=== PATIENT | female | born 1930 | race Caucasian/White ===

== ENCOUNTER 2017-02-07 10:10 | Emergency (ER) | payer MEDICARE, OTHER ==
[~2017-02-07] VITALS: Ht 167.6 cm; Wt 54.0 kg
[2017-02-07] MEDS ORDERED: IBUP-1 PO (10:21)
[2017-02-07] MEDS ORDERED: LOSA50TA2 PO (10:21)
[2017-02-07] MEDS ORDERED: ASPI-496 PO (10:21)
[2017-02-07 11:58] VITALS: BP 140/89
== END 2017-02-07 12:00 | disposition home or self-care (01) ==
LOC: ED 11:15
DX: S60.212A Contusion of left wrist, initial encounter (principal); I10 Essential (primary) hypertension; X58.XXXA Exposure to other specified factors, initial encounter; Y93.89 Activity, other specified; Y92.009 Unspecified place in unspecified non-institutional (private) residence as the place of occurrence of the external cause; Y99.9 Unspecified external cause status
CPT/HCPCS: 99284

== ENCOUNTER 2017-09-27 21:25 | Emergency (ER) | payer MEDICARE, OTHER ==
[~2017-09-27] VITALS: Ht 167.6 cm; Wt 65.0 kg
[~2017-09-27 21:25] MED LIST: ASPI-496 PO; IBUP-11 PO; LOSA50TA2 PO
[2017-09-27 22:54] VITALS: BP 131/76
== END 2017-09-28 00:03 | disposition home or self-care (01) ==
LOC: ED 23:57
DX: S06.0X0A Concussion without loss of consciousness, initial encounter (principal); G30.1 Alzheimer's disease with late onset; F02.80 Dementia in other diseases classified elsewhere, unspecified severity, without behavioral disturbance, psychotic disturbance, mood disturbance, and anxiety; I10 Essential (primary) hypertension; W01.0XXA Fall on same level from slipping, tripping and stumbling without subsequent striking against object, initial encounter; Y93.89 Activity, other specified; Y92.009 Unspecified place in unspecified non-institutional (private) residence as the place of occurrence of the external cause; Y99.9 Unspecified external cause status
CPT/HCPCS: 70450; 99284

== ENCOUNTER 2018-01-08 00:46 | Inpatient (IN) | payer MEDICARE, OTHER ==
[~2018-01-08] VITALS: Ht 167.6 cm; Wt 51.7 kg
[2018-01-08] MEDS ORDERED: LIDOCAINE-MPF 2% ,5ML ONE (01:09)
[2018-01-08 01:25] LABS: BASOPHILS # (AUTO) 0.02 x10^3/uL (0-0.1); BASOPHILS % (AUTO) 0 % (0-1); EOSINOPHILS # (AUTO) 0.14 x10^3/uL (0-0.4); EOSINOPHILS % (AUTO) 1 % (1-7); LYMPHOCYTES # (AUTO) 1.26 x10^3/uL (1-3.4); LYMPHOCYTES % (AUTO) 12 % (22-44); MD NO; MEAN CORPUSCULAR HEMOGLOBIN 29.9 pg (27.0-34.8); MEAN CORPUSCULAR VOLUME 90.8 fL (80-100); MEAN PLATELET VOLUME 7.5 fL (7.4-10.4); MONOCYTES # (AUTO) 0.44 x10^3/uL (0.2-0.8); MONOCYTES % (AUTO) 4 % (2-9); NEUTROPHILS # (AUTO) 9.04 x10^3/uL (1.8-6.8); NEUTROPHILS % (AUTO) 83 % (42-75); PLATELET COUNT 244 x10^3/uL (130-400); RED BLOOD COUNT 4.85 x10^6/uL (3.82-5.3); RED CELL DISTRIBUTION WIDTH 16.3 % (9.6-15.2)
[2018-01-08] MEDS ORDERED: MENT3.5O TP (01:30)
[2018-01-08] MEDS ORDERED: ACET-1600 PO (01:30)
[2018-01-08] MEDS ORDERED: LIDOCAINE-MPF 2% ,5ML INFIL ONE ×2 (01:30)
[2018-01-08] MEDS ORDERED: TRAM50TA2 PO (01:30)
[2018-01-08] MEDS ORDERED: MORPHINE SULFATE 4 MG/ML, 1ML IVPush ONE ×2 (01:30→04:30)
[2018-01-08] MEDS ORDERED: FURO40TA6 PO (01:30)
[2018-01-08] MEDS ORDERED: ALLO100T30 PO (01:30)
[2018-01-08] MEDS ORDERED: POTA10CA PO (01:30)
[2018-01-08] MEDS ORDERED: LORA0.5T PO (01:30)
[2018-01-08 01:34] LABS: INTERNATIONAL NORMALIZED RATIO 0.97 (0.93-1.1)
[2018-01-08 01:37] LABS: ALBUMIN 3.4 g/dL (3.4-5.0); ANION GAP 8 mmol/L (5-15); CALCIUM 9.2 mg/dL (8.5-10.1); CHLORIDE 104 mmol/L (98-107); CREATININE 0.65 mg/dL (0.55-1.02)
[2018-01-08] MEDS ORDERED: MORPHINE SULFATE 4 MG/ML, 1ML ONE (01:48)
[2018-01-08] MEDS ORDERED: LORazepam 2 MG/ML, 1ML IVPush ONE (02:00)
[2018-01-08] MEDS ORDERED: LORazepam 2 MG/ML, 1ML ONE (02:02)
[2018-01-08 07:57] VITALS: BP 184/108
[2018-01-08] MEDS ORDERED: hydrALAzine 20 MG/ML, 1ML IV ONE (08:30)
[2018-01-08 09:07] VITALS: BP 147/89
[2018-01-08 10:55] VITALS: BP 184/108
[2018-01-08] MEDS ORDERED: IBUPROFEN 200 MG TABLET PO PRN (13:00)
[2018-01-08 13:31] VITALS: BP 132/74
[2018-01-08] MEDS ORDERED: LORazepam 2 MG/ML, 1ML IVPush PRN (15:00)
[2018-01-08] MEDS: ACETAMINOPHEN 500 MG TABLET PO SCH ×2 (16:24→20:46)
[2018-01-08 16:42] LABS: CULTURE INDICATED? YES; MICROSCOPIC INDICATED
[2018-01-08 20:45] VITALS: BP 161/85
[2018-01-08] MEDS: LORazepam 0.5MG TABLET PO SCH (20:46)
[2018-01-09 02:16] VITALS: BP 134/70
[2018-01-09 05:59] LABS: ANION GAP 6 mmol/L (5-15); CALCIUM 8.8 mg/dL (8.5-10.1); CHLORIDE 105 mmol/L (98-107)
[2018-01-09 06:02] LABS: BASOPHILS # (AUTO) 0.02 x10^3/uL (0-0.1); BASOPHILS % (AUTO) 0 % (0-1); EOSINOPHILS # (AUTO) 0.07 x10^3/uL (0-0.4); EOSINOPHILS % (AUTO) 1 % (1-7); LYMPHOCYTES # (AUTO) 1.02 x10^3/uL (1-3.4); LYMPHOCYTES % (AUTO) 15 % (22-44); MD NO; MEAN CORPUSCULAR HEMOGLOBIN 30.4 pg (27.0-34.8); MEAN CORPUSCULAR HGB CONC 33.4 g/dL (32.4-35.8); MEAN CORPUSCULAR VOLUME 91.2 fL (80-100); MEAN PLATELET VOLUME 7.8 fL (7.4-10.4); MONOCYTES # (AUTO) 0.49 x10^3/uL (0.2-0.8); MONOCYTES % (AUTO) 7 % (2-9); NEUTROPHILS # (AUTO) 5.31 x10^3/uL (1.8-6.8); NEUTROPHILS % (AUTO) 77 % (42-75); PLATELET COUNT 251 x10^3/uL (130-400); RED BLOOD COUNT 4.68 x10^6/uL (3.82-5.3); RED CELL DISTRIBUTION WIDTH 15.4 % (9.6-15.2)
[2018-01-09 06:03] LABS: CREATININE 0.57 mg/dL (0.55-1.02)
[2018-01-09 07:05] VITALS: BP 185/99
[2018-01-09] MEDS: POTASSIUM CHLORIDE 10 MEQ TABLET.ER PO SCH (07:44)
[2018-01-09] MEDS: LOSARTAN 50MG TABLET PO SCH (07:44)
[2018-01-09] MEDS: ASPIRIN 81 MG TABLET EC PO SCH (07:44)
[2018-01-09] MEDS: ACETAMINOPHEN 500 MG TABLET PO SCH ×3 (07:44→20:40)
[2018-01-09] MEDS: ALLOPURINOL 100 MG TABLET PO SCH (07:44)
[2018-01-09] MEDS ORDERED: FUROSEMIDE 40 MG TABLET PO SCH (09:00)
[2018-01-09] MEDS: ENOXAPARIN 40 MG/0.4 ML SQ SCH (14:08)
[2018-01-09 14:15] VITALS: BP 177/106
[2018-01-09] MEDS ORDERED: LABETALOL 5MG/ML, 20ML IVPush PRN (16:30)
[2018-01-09] MEDS: AMLODIPINE 5 MG TABLET PO SCH (17:45)
[2018-01-09] MEDS: QUETIAPINE 25MG TABLET PO SCH (17:49)
[2018-01-09] MEDS: LORazepam 0.5MG TABLET PO SCH (20:40)
[2018-01-09 20:45] VITALS: BP 142/78
[2018-01-10 02:26] VITALS: BP 140/68
[2018-01-10 05:43] LABS: BASOPHILS # (AUTO) 0.03 x10^3/uL (0-0.1); BASOPHILS % (AUTO) 1 % (0-1); EOSINOPHILS # (AUTO) 0.01 x10^3/uL (0-0.4); EOSINOPHILS % (AUTO) 0 % (1-7); LYMPHOCYTES # (AUTO) 0.79 x10^3/uL (1-3.4); LYMPHOCYTES % (AUTO) 12 % (22-44); MD NO; MEAN CORPUSCULAR HEMOGLOBIN 30.3 pg (27.0-34.8); MEAN CORPUSCULAR HGB CONC 33.2 g/dL (32.4-35.8); MEAN CORPUSCULAR VOLUME 91.3 fL (80-100); MEAN PLATELET VOLUME 7.8 fL (7.4-10.4); MONOCYTES # (AUTO) 0.68 x10^3/uL (0.2-0.8); MONOCYTES % (AUTO) 10 % (2-9); NEUTROPHILS # (AUTO) 5.07 x10^3/uL (1.8-6.8); NEUTROPHILS % (AUTO) 77 % (42-75); PLATELET COUNT 276 x10^3/uL (130-400); RED BLOOD COUNT 4.49 x10^6/uL (3.82-5.3); RED CELL DISTRIBUTION WIDTH 15.6 % (9.6-15.2)
[2018-01-10 05:54] LABS: CHLORIDE 104 mmol/L (98-107)
[2018-01-10 06:09] LABS: ALANINE AMINOTRANSFERASE 19 U/L (12-78); ALBUMIN 2.9 g/dL (3.4-5.0); ALKALINE PHOSPHATASE 82 U/L (45-117); ANION GAP 9 mmol/L (5-15); BILIRUBIN,TOTAL 0.7 mg/dL (0.2-1.0); CALCIUM 8.5 mg/dL (8.5-10.1); CREATININE 0.69 mg/dL (0.55-1.02); TOTAL PROTEIN 6.6 g/dL (6.4-8.2)
[2018-01-10 06:41] VITALS: BP 155/90
[2018-01-10] MEDS: ASPIRIN 81 MG TABLET EC PO SCH (11:00)
[2018-01-10] MEDS: POTASSIUM CHLORIDE 10 MEQ TABLET.ER PO SCH (11:00)
[2018-01-10] MEDS: ACETAMINOPHEN 500 MG TABLET PO SCH ×3 (11:00→23:09)
[2018-01-10] MEDS: ALLOPURINOL 100 MG TABLET PO SCH (11:00)
[2018-01-10] MEDS: QUETIAPINE 25MG TABLET PO SCH ×2 (11:01→16:39)
[2018-01-10] MEDS: AMLODIPINE 5 MG TABLET PO SCH (11:01)
[2018-01-10] MEDS: LOSARTAN 50MG TABLET PO SCH (11:01)
[2018-01-10 14:09] VITALS: BP 92/61
[2018-01-10] MEDS: ENOXAPARIN 40 MG/0.4 ML SQ SCH (14:31)
[2018-01-10] MEDS ORDERED: POLYETHYLENE GLYCOL 17 GM PACKET ONE (16:34)
[2018-01-10] MEDS: POLYETHYLENE GLYCOL 17 GM PACKET PO SCH (16:39)
[2018-01-10 21:58] VITALS: BP 128/82
[2018-01-10] MEDS: LORazepam 0.5MG TABLET PO SCH (23:08)
[2018-01-11 03:29] VITALS: BP 153/97
[2018-01-11 07:35] VITALS: BP 117/60
[2018-01-11] MEDS ORDERED: FURO40TA6 PO (08:02)
[2018-01-11] MEDS ORDERED: QUET25TA PO (08:02)
[2018-01-11] MEDS ORDERED: AMLO5TAB2 PO (08:02)
[2018-01-11] MEDS: QUETIAPINE 25MG TABLET PO SCH ×2 (10:13→17:05)
[2018-01-11] MEDS: ACETAMINOPHEN 500 MG TABLET PO SCH ×3 (10:13→21:28)
[2018-01-11] MEDS: AMLODIPINE 5 MG TABLET PO SCH (10:13)
[2018-01-11] MEDS: LOSARTAN 50MG TABLET PO SCH (10:13)
[2018-01-11] MEDS: POLYETHYLENE GLYCOL 17 GM PACKET PO SCH (10:13)
[2018-01-11] MEDS: ALLOPURINOL 100 MG TABLET PO SCH (10:13)
[2018-01-11] MEDS: ASPIRIN 81 MG TABLET EC PO SCH (10:13)
[2018-01-11] MEDS: POTASSIUM CHLORIDE 10 MEQ TABLET.ER PO SCH (10:14)
[2018-01-11] MEDS: ENOXAPARIN 40 MG/0.4 ML SQ SCH ×3 (14:00→17:10)
[2018-01-11 14:55] VITALS: BP 135/77
[2018-01-11 20:00] VITALS: BP 137/88
[2018-01-11] MEDS: LORazepam 0.5MG TABLET PO SCH (21:29)
[2018-01-12 02:00] VITALS: BP 144/79
[2018-01-12] MEDS ORDERED: BISACODYL 10 MG SUPP PR PRN (05:30)
[2018-01-12 05:34] LABS: BASOPHILS # (AUTO) 0.05 x10^3/uL (0-0.1); BASOPHILS % (AUTO) 1 % (0-1); EOSINOPHILS # (AUTO) 0.23 x10^3/uL (0-0.4); EOSINOPHILS % (AUTO) 5 % (1-7); LYMPHOCYTES # (AUTO) 1.51 x10^3/uL (1-3.4); LYMPHOCYTES % (AUTO) 31 % (22-44); MD NO; MEAN CORPUSCULAR HEMOGLOBIN 30.4 pg (27.0-34.8); MEAN CORPUSCULAR HGB CONC 33.2 g/dL (32.4-35.8); MEAN CORPUSCULAR VOLUME 91.3 fL (80-100); MEAN PLATELET VOLUME 7.3 fL (7.4-10.4); MONOCYTES # (AUTO) 0.53 x10^3/uL (0.2-0.8); MONOCYTES % (AUTO) 11 % (2-9); NEUTROPHILS # (AUTO) 2.59 x10^3/uL (1.8-6.8); NEUTROPHILS % (AUTO) 53 % (42-75); PLATELET COUNT 299 x10^3/uL (130-400); RED BLOOD COUNT 4.54 x10^6/uL (3.82-5.3); RED CELL DISTRIBUTION WIDTH 15.5 % (9.6-15.2)
[2018-01-12 05:44] LABS: ALBUMIN 2.8 g/dL (3.4-5.0); ANION GAP 6 mmol/L (5-15); CALCIUM 9.4 mg/dL (8.5-10.1); CHLORIDE 106 mmol/L (98-107); CREATININE 0.63 mg/dL (0.55-1.02)
[2018-01-12 07:24] VITALS: BP 157/82
[2018-01-12] MEDS ORDERED: CEPHALEXIN 500 MG CAPSULE PO SCH (09:00)
[2018-01-12] MEDS: AMLODIPINE 5 MG TABLET PO SCH (09:39)
[2018-01-12] MEDS: ALLOPURINOL 100 MG TABLET PO SCH (09:39)
[2018-01-12] MEDS: POTASSIUM CHLORIDE 10 MEQ TABLET.ER PO SCH (09:39)
[2018-01-12] MEDS: ACETAMINOPHEN 500 MG TABLET PO SCH ×2 (09:39→16:33)
[2018-01-12] MEDS: LOSARTAN 50MG TABLET PO SCH (09:39)
[2018-01-12] MEDS: QUETIAPINE 25MG TABLET PO SCH ×2 (09:39→16:43)
[2018-01-12] MEDS: ASPIRIN 81 MG TABLET EC PO SCH (09:39)
[2018-01-12] MEDS: POLYETHYLENE GLYCOL 17 GM PACKET PO SCH (09:42)
[2018-01-12 14:53] VITALS: BP 129/77
[2018-01-12] MEDS: NITROFURANTOIN 50 MG CAPSULE PO SCH ×2 (16:33→20:34)
[2018-01-12] MEDS: ENOXAPARIN 40 MG/0.4 ML SQ SCH (16:42)
[2018-01-12 17:43] LABS: MICROSCOPIC INDICATED
[2018-01-12 18:05] LABS: CULTURE INDICATED? YES
[2018-01-12 18:55] VITALS: BP_SYST 172; BP_SYST 182; BP_DIAS 81; BP_DIAS 93
[2018-01-12 19:52] VITALS: BP 168/86
[2018-01-12] MEDS: LORazepam 0.5MG TABLET PO SCH (20:34)
[2018-01-13] MEDS: ACETAMINOPHEN 500 MG TABLET PO SCH ×4 (01:30→21:32)
[2018-01-13 02:35] VITALS: BP 137/77
[2018-01-13] MEDS: NITROFURANTOIN 50 MG CAPSULE PO SCH ×4 (06:31→21:32)
[2018-01-13] MEDS ORDERED: MORPHINE SULFATE 4 MG/ML, 1ML ONE (07:11)
[2018-01-13 08:51] VITALS: BP 150/82
[2018-01-13] MEDS: ASPIRIN 81 MG TABLET EC PO SCH (09:19)
[2018-01-13] MEDS: AMLODIPINE 5 MG TABLET PO SCH (09:19)
[2018-01-13] MEDS: QUETIAPINE 25MG TABLET PO SCH ×2 (09:19→16:22)
[2018-01-13] MEDS: LOSARTAN 50MG TABLET PO SCH (09:19)
[2018-01-13] MEDS: POLYETHYLENE GLYCOL 17 GM PACKET PO SCH (09:21)
[2018-01-13] MEDS: ALLOPURINOL 100 MG TABLET PO SCH (09:21)
[2018-01-13 14:00] VITALS: BP 99/61
[2018-01-13] MEDS: ENOXAPARIN 40 MG/0.4 ML SQ SCH (16:22)
[2018-01-13 19:57] VITALS: BP 101/62
[2018-01-13] MEDS: LORazepam 0.5MG TABLET PO SCH (21:32)
[2018-01-14 01:11] VITALS: BP 120/74
[2018-01-14] MEDS: NITROFURANTOIN 50 MG CAPSULE PO SCH ×2 (06:54→10:52)
[2018-01-14 07:06] VITALS: BP 126/76
[2018-01-14] MEDS ORDERED: ASPIRIN 81 MG TABLET CHEW PO SCH (09:00)
[2018-01-14] MEDS: LOSARTAN 50MG TABLET PO SCH (09:02)
[2018-01-14] MEDS: AMLODIPINE 5 MG TABLET PO SCH (09:02)
[2018-01-14] MEDS: ACETAMINOPHEN 500 MG TABLET PO SCH (09:02)
[2018-01-14] MEDS: ALLOPURINOL 100 MG TABLET PO SCH (09:02)
[2018-01-14] MEDS: QUETIAPINE 25MG TABLET PO SCH (09:02)
[2018-01-14] MEDS: POLYETHYLENE GLYCOL 17 GM PACKET PO SCH (09:02)
== END 2018-01-14 16:05 | DRG 542 ==
LOC: ED 01:46 → EDIP 06:17 → 4NOR 07:50
PROVIDERS: ADMIT Internal Medicine; ATTEND Internal Medicine
PROC: 0T9B70Z Drainage of Bladder with Drainage Device, Via Natural or Artificial Opening (ICD-10-PCS; principal; 2018-01-08)
DX: M48.56XA Collapsed vertebra, not elsewhere classified, lumbar region, initial encounter for fracture (principal); E43 Unspecified severe protein-calorie malnutrition; N39.0 Urinary tract infection, site not specified; R47.01 Aphasia; Z51.5 Encounter for palliative care; W18.30XA Fall on same level, unspecified, initial encounter; S01.01XA Laceration without foreign body of scalp, initial encounter; F03.90 Unspecified dementia, unspecified severity, without behavioral disturbance, psychotic disturbance, mood disturbance, and anxiety; I10 Essential (primary) hypertension; I77.810 Thoracic aortic ectasia; Z79.899 Other long term (current) drug therapy; Z91.81 History of falling; Y93.89 Activity, other specified; Y92.89 Other specified places as the place of occurrence of the external cause; Y99.8 Other external cause status
CPT/HCPCS: 36415; 70450; 70486; 71250; 72125; 72131; 80048; 80053; 81001; 82040; 83735; 84100; 85025; 85610; 85730; 87077; 87086; 87186; 93005; 93970; 96374; 96375; J1650; J3490; J0360; J2060